=== PATIENT | female | born 1960 | race Caucasian/White ===

== ENCOUNTER 2024-05-20 17:49 | Emergency (ER) | payer BC ==
[2024-05-20] MEDS ORDERED: Lidocaine 1% PF 5 ML VIAL ONE (18:39)
[2024-05-20] MEDS ORDERED: Bacitracin 1 PK ONE (19:14)
== END 2024-05-20 19:28 | disposition home or self-care (01) ==
LOC: MADERS 17:49
DX: S61.210A Laceration without foreign body of right index finger without damage to nail, initial encounter (principal); E03.9 Hypothyroidism, unspecified; E78.5 Hyperlipidemia, unspecified; I10 Essential (primary) hypertension; W26.0XXA Contact with knife, initial encounter; Z79.899 Other long term (current) drug therapy
CPT/HCPCS: 12001; 99282